=== PATIENT | male | born 1990 | race African-American/Black ===

== ENCOUNTER 2020-12-29 14:21 | Emergency (ER) | payer OTHER, SELFPAY ==
[2020-12-29 14:30] VITALS: BP 147/93; PULSE 91; RESP 16; TEMP 36.6; O2SAT 98
--- NOTE | 2020-12-29 14:46 | ED.DENTAL ---
HPI - Dental/Oral General Chief complaint: Dental/Oral Stated complaint: Tooth Pain Time Seen by Provider: 12/29/20 14:34 Source: patient and RN notes reviewed Mode of arrival: ambulatory Limitations: no limitations History of Present Illness HPI Narrative: Patient presents today complaining of left lower dental pain x3 days. Patient states tooth has been broken for some time, but just started to be painful several days ago. Patient is post to call back tomorrow and make an appointment, but it was suggested he come to urgent care to be evaluated. Denies fever, shortness of breath, difficulty swallowing. Currently rates pain 10 and has been taking 800 mg ibuprofen and using mouthwash without relief. MD Complaint: tooth pain Related Data Home Medications Medication Instructions Recorded Confirmed ibuprofen 800 mg PO DAILY 12/29/20 12/29/20 quetiapine 50 mg PO DAILY 12/29/20 12/29/20 Allergies Allergy/AdvReac Type Severity Reaction Status Date / Time No Known Allergies Allergy Verified 12/29/20 14:38 Review of Systems Review of Systems: CONSTITUTIONAL: Denies body aches, fever, chills, or sweats. EYES: Denies visual changes, redness, or discharge. ENT: Denies rhinorrhea, congestion, sore throat, or otalgia.+ Tooth pain CARDIOVASCULAR: Denies chest pain, palpitations, or edema. RESPIRATORY: Denies cough or dyspnea. GASTROINTESTINAL: Denies abdominal pain, nausea, vomiting, or diarrhea. GENITOURINARY: Denies dysuria or hematuria. SKIN: Denies rash, itching, or wounds. MUSCULOSKELETAL: Denies back pain, joint pain, or myalgia. NEUROLOGIC: Denies headache, numbness, tingling, or weakness. PSYCH: Denies depression or anxiety. PMFSH Comments At time of signature, I have reviewed and agree with nursing past medical, surgical, social and family history unless otherwise noted. Please see nursing chart for further information. There is no relevant family history pertinent to the presenting complaint Exam Narrative: GENERAL: Well-appearing, well-nourished, and in no acute distress. HEAD: Normocephalic, atraumatic. EYES: EOMI. No redness or drainage. Conjunctivae normal. ENT: Mucous membranes pink and moist. Posterior half of tooth #21 is broken off. Remainder of the tooth has several fillings. Surrounding gumline is erythematous and edematous. No obvious periapical abscess present. NECK: Normal AROM. Supple. No lymphadenopathy. CHEST: No respiratory distress. Clear to auscultation. HEART: Regular rate and rhythm. No murmur appreciated. Normal peripheral pulses. EXTREMITIES: Normal range of motion. No edema. SKIN: Warm, dry, no rash. Capillary refill normal. Normal skin turgor. NEURO: No focal deficits. Alert and oriented x3. Gait steady. PSYCH: Normal affect. No signs of depression or anxiety. Course Vital Signs Vital signs: Vital Signs Temperature 97.9 F 12/29/20 14:30 Pulse Rate 91 12/29/20 14:30 Respiratory Rate 16 12/29/20 14:30 Blood Pressure 147/93 H 12/29/20 14:30 Pulse Oximetry 98 12/29/20 14:30 Temperature 97.9 F 12/29/20 14:30 Pulse Rate 91 12/29/20 14:30 Respiratory Rate 16 12/29/20 14:30 Blood Pressure 147/93 H 12/29/20 14:30 Pulse Oximetry 98 12/29/20 14:30 Reviewed. Pt has been instructed to follow up with his PCP regarding his elevated blood pressure today. MDM - Dental/Oral Differential Diagnosis Differential diagnosis: Likely gingival abscess, dental caries, toothache, dental abscess and fracture of tooth Critical Care Time Critical Care Time Critical Care Time: No Discharge Plan Discharge Clinical Impression: Dental abscess Patient Disposition: Home, Self-Care Condition: Stable Instructions: Antibiotic Form, Dental Abscess (ED) Additional Instructions: Please take the amoxicillin as prescribed until gone. Take the Tylenol 3 for pain. You should also be taking ibuprofen for inflammation. Do not drive within 6 hours of taking the T
== END 2020-12-29 14:54 | disposition home or self-care (01) ==
PROVIDERS: Emergency Provider Nurse Practitioner
DX: K08.89 Other specified disorders of teeth and supporting structures (principal); K04.7 Periapical abscess without sinus
CPT/HCPCS: 99213; G0463

== ENCOUNTER 2023-01-22 14:05 | Emergency (ER) | payer OTHER, SELFPAY ==
[2023-01-22 14:16] VITALS: BP 152/101; PULSE 88; RESP 16; TEMP 36.6; O2SAT 99
--- NOTE | 2023-01-22 14:35 | ED.URI ---
HPI - URI/Sore Throat General Chief Complaint: Upper Respiratory Infection Stated Complaint: sore throat History of Present Illness HPI Narrative: 32-year-old male presented for complaint of cough for about 2-3 days, endorses sore throat with coughing. Denies any nasal congestion, headache, fatigue, body aches, shortness of breath, wheezing, nausea vomiting fevers or chills. Took Delsym last night for symptoms. Denies known sick contacts. Related Data Home Medications Medication Instructions Recorded Confirmed ibuprofen 800 mg tablet 800 mg PO DAILY 12/29/20 12/29/20 quetiapine 50 mg tablet 50 mg PO DAILY 12/29/20 12/29/20 Allergies Allergy/AdvReac Type Severity Reaction Status Date / Time No Known Allergies Allergy Verified 01/22/23 14:27 Review of Systems Review of Systems: CONSTITUTIONAL: Denies body aches, fever, chills, or sweats. EYES: Denies visual changes, redness, or discharge. ENT: reports sore throat Denies rhinorrhea, congestion, or otalgia. CARDIOVASCULAR: Denies chest pain, palpitations, or edema. RESPIRATORY: Reports cough Denies dyspnea. GASTROINTESTINAL: Denies abdominal pain, nausea, vomiting, or diarrhea. SKIN: Denies rash, itching, or wounds. MUSCULOSKELETAL: Denies back pain, joint pain, or myalgia. NEUROLOGIC: Denies headache PMFSH Past Medical History Medical History (Updated 01/22/23 @ 14:52 by Kerri Watson, REPAIR OPERATOR) No pertinent past medical history Exam Narrative: GENERAL: well-appearing, no acute distress. EYES: conjunctivae clear ENT: Mucous membranes moist. TM pearly mesa with normal light reflex bilaterally; no tragal tenderness. Oropharynx erythematous without lesions. Tonsils enlarged and without exudate. hoarse voice. No drooling, no trismus, uvula midline. No tripod positioning, hot potato voice, or soft palate swelling. NECK: Supple. No lymphadenopathy CHEST: Clear to auscultation, breath sounds equal. No respiratory distress, speaks in full sentences. HEART: Regular rate and rhythm. No murmur heard. SKIN: Warm, dry, no rash. NEURO: Alert and oriented x3. Course Course Emergency Course: Patient is aware of diagnosis, understands and agrees to treatment plan. Anticipatory guidance given. Patient agrees to follow-up as directed and is aware of reasons to seek care at the emergency department. Portions of this record may have been created with voice recognition software Level of Care: Express Care Visit Vital Signs Vital signs: Vital Signs Temperature 97.8 F 01/22/23 14:16 Pulse Rate 88 01/22/23 14:16 Respiratory Rate 16 01/22/23 14:16 Blood Pressure 152/101 H 01/22/23 14:16 Pulse Oximetry 99 01/22/23 14:16 Oxygen Delivery Room Air 01/22/23 14:16 Temperature 97.8 F 01/22/23 14:16 Pulse Rate 88 01/22/23 14:16 Respiratory Rate 16 01/22/23 14:16 Blood Pressure 152/101 H 01/22/23 14:16 Pulse Oximetry 99 01/22/23 14:16 Oxygen Delivery Room Air 01/22/23 14:16 MDM - URI/Sore Throat MDM Narrative Medical decision making narrative: neg strep result reviewed with pt. Advise supportive treatments. Patient is appropriate for outpatient treatment and follow-up. Differential Diagnosis Differential diagnosis: Likely upper respiratory infection, viral infection and pharyngitis Lab Data Labs: Strep Screen Presumptive Negative *(Reference Range: Negative)* Discharge Plan Discharge Clinical Impression: Cough Patient Disposition: Home, Self-Care Condition: Stable Instructions: Antibiotic Form, Acute Cough (ED) Additional Instructions: Your blood pressure reading was elevated (above 120/80) please follow-up with your primary care provider for further evaluation and management. If you develop worsening Blood Pressure symptoms, (headache, vision changes, dizziness, vomiting, chest pain, etc) go to the ER. Call 911.
== END 2023-01-22 14:52 | disposition home or self-care (01) ==
PROVIDERS: Emergency Provider Nurse Practitioner Family; PCP Internal Medicine
DX: R05.9 Cough, unspecified (principal)
CPT/HCPCS: 87081; 87880; 99213; G0463